=== PATIENT | male | born 1985 | race Two or more races ===

== ENCOUNTER 2025-05-04 14:50 | Emergency (ER) | payer MEDICAID, SELFPAY ==
[2025-05-04 14:52] VITALS: BMI 31.9
--- NOTE | 2025-05-04 14:55 | XR_ITS ---
Examination: Soft tissue extremity right thigh Technique: Grayscale sonographic images soft tissue right thigh Date and time: May 04, 2025, 1530 hrs. Indications: Patient states onset palpable lump in the anterior upper thigh beginning today. Findings: Soft tissue mass with heterogeneous echogenicity, no vascularity, 18 x 17 x 15 mm at the area of concern Impression: Findings most consistent with lymph node in the soft tissue right thigh at the area concern, recommend 3 month follow-up ultrasound soft tissue thigh
--- NOTE | 2025-05-04 14:55 | PD.EDEXREM ---
ED Extremity Problem RME/HPI General Chief complaint: Extremity Problem,Nontraumatic Stated complaint: KNOT TO RIGHT THIGH Time Seen by Provider: 05/04/25 14:52 Source: patient and family Arrival date/time: 05/04/25 14:50 Limitations: no limitations RME / HPI RME / HPI Narrative: Here with atraumatic pain/swelling at the right anterior mid thigh that started 1 hour prior to his arrival. No fevers, open wounds, or fevers. No redness or drainage. He has HTN and no other chronic disease. Patient states he does drink alcohol every day. He drinks 1 pint of whiskey daily. He denies any tremors in his history of seizure disorder. He is self ambulating without assistance. Related Data Home Medications ?Medication ?Instructions ?Recorded ?Confirmed lisinopril 10 mg tablet 10 mg PO QDAY 06/23/23 06/24/23 Previous Rx's ?Medication ?Instructions ?Recorded lisinopril 20 mg tablet 20 mg PO QDAY #30 tabs 05/04/25 Allergies Allergy/AdvReac Type Severity Reaction Status Date / Time cephalexin (From Keflex) Allergy Intermediate Swelling Verified 05/04/25 14:52 of Lip/Tongue/Throat Review of Systems Review of Systems Systems Reviewed: All systems reviewed, normal except as documented ED Exam General Limitations: Present no limitations General appearance: Present alert and in no apparent distress Head Head exam: Present atraumatic Eye Eye exam: Present normal appearance and PERRL ENT ENT exam: Present normal exam, normal oropharynx and mucous membranes moist Neck Neck exam: Present normal inspection, full ROM and trachea midline Chest Chest inspection: Present normal inspection and symmetric chest wall rise Respiratory Respiratory exam: Present normal lung sounds bilaterally Cardiovascular Cardiovascular exam: Present regular rate and normal rhythm Abdominal Exam Abdominal exam: Present soft Extremities Exam Extremities exam: Present full ROM and other (semi firm, tender 0.5 cm mass at the anterior right mid thigh. No induration, fluctuance, or discharge. Skin surface is intact. ) Back Exam Back exam: Present normal inspection and full ROM Neurological Exam Neurological exam: Present alert and oriented X3 Psychiatric Psychiatric exam: Present normal affect and normal mood Skin Skin exam: Present warm, dry, intact and normal color Course Quality Measures none Orders Category Date Time Status EKG (ED ONLY) *Do not use* NOW Care 05/04/25 16:01 Completed EKG (ED Only) Stat Exams 05/04/25 16:00 Draft US extremity nonvascular LMTD Stat Exams 05/04/25 14:55 Completed CBC Stat Lab 05/04/25 15:16 Completed CMP [Comprehensive Metabolic Panel] Stat Lab 05/04/25 15:16 Completed Ibuprofen Tab [Motrin Tab] Med 05/04/25 14:52 Discontinued 600 mg PO X1 ONE Lisinopril [Prinivil] Med 05/04/25 16:00 Discontinued 20 mg PO X1 ONE cloNIDine HCL [Catapres] Med 05/04/25 18:37 Discontinued 0.2 mg PO X1 ONE hydrALAZINE HCL [Apresoline] Med 05/04/25 17:35 Discontinued 10 mg PO X1 ONE hydrALAZINE HCL [Apresoline] Med 05/04/25 17:52 Discontinued 25 mg PO X1 ONE Vital Signs Vital signs: Vital Signs Temperature 99.0 F 05/04/25 15:00 Pulse Rate 82 05/04/25 15:00 Respiratory Rate 19 05/04/25 15:00 Blood Pressure 199/133 H 05/04/25 15:00 Pulse Oximetry (%) 96 05/04/25 15:00 Oxygen Delivery Method Room Air 05/04/25 15:00 Extremity Problem MDM Narrative MDM Narrative:: Here with atraumatic pain/swelling at the right anterior mid thigh that started 1 hour prior to his arrival. No fevers, open wounds, or fevers. No redness or drainage. He has HTN and no other chronic disease. Patient states he does drink alcohol every day. He drinks 1 pint of whiskey daily. He denies any tremors in his history of seizure disorder. He is self ambulating without assistance. On exam, patient is nontoxic-appearing in no visible signs stress. His blood pressures are elevated. He was initially 129/33. Workup here included CBC, CMP, and EKG. His CBC is unremarkable. His metabolic panel is remarkable for AST at 57, ALT at 101. Alk phos is unremarkable. Patient received doses of lisinopril and hydralazine here. We also refilled his prescription of lisinopril. We had a detailed conversation regarding alcohol abuse and his untreated hypertension. We discussed his liver function in detail. Patient was strongly encouraged to follow-up with his primary doctor and manage his blood pressure. We discussed medical management of him discontinuing alcohol abuse when he is ready. He is at risk for seizure disorder if he stops cold turkey . Patient was agreeable to this. He agrees to return anytime for any worsening or emergent changes. Patient data External records reviewed:: None Clinical information provided by:: patient Social determinants that could affect healthcare access:: none Patient has the following chronic illnesses:: Hypertension, alcohol abuse How is presenting disease/condition affected by chronic disease/condition?: exacerbated by Evaluation data The following diagnostics were reviewed and interpreted by me:: lab results Lab and/or radiology exams considered but not ordered:: n/a Interpretation Summary: Elevated liver enzymes Medications / Prescriptions Medications or Prescriptions considered but not ordered:: n/a Medication administrations:: Medication Administration History Discontinued Medications Clonidine (Clonidine Hcl 0.1 Mg Tablet) 0.2 mg PO X1 ONE Stop: 05/04/25 18:38 Last Admin: 05/04/25 19:03 Dose: 0.2 mg Documented By: Hydralazine HCl (Hydralazine Hcl 10 Mg Tablet) 10 mg PO X1 ONE Stop: 05/04/25 17:36 Last Admin: 05/04/25 17:55 Dose: Not Given Documented By: DANE Non-Admin Reason: Discontinued Hydralazine HCl (Hydralazine Hcl 25 Mg Tablet) 25 mg PO X1 ONE Stop: 05/04/25 17:53 Last Admin: 05/04/25 17:56 Dose: 25 mg Documented By: DANE Ibuprofen (Ibuprofen Tab 600 Mg Tablet) 600 mg PO X1 ONE Stop: 05/04/25 14:53 Last Admin: 05/04/25 15:16 Dose: 600 mg Documented By: Lisinopril (Lisinopril 20 Mg Tablet) 20 mg PO X1 ONE Stop: 05/04/25 16:01 Last Admin: 05/04/25 16:07 Dose: 20 mg Documented By: see above Consultations Consultation(s) initiated? (list below): Yes Diagnosis Extremity Problem Differential Diagnosis: other (Lipoma, dermatofibroma, abscess) Most likely diagnosis given after review of the tests above:: Lymphadenopathy, hypertension, alcohol abuse Admission Indicated Admission indicated?: not indicated Admission Request Was there a request for admission?: No Disposition Plan Disposition Plan: Discharge Discharge Attestation Discharge Attestation: The patient and all family members were given an opportunity to ask questions and understood the discharge instructions. Discharge instructions specifically effects, indications for sooner follow up or return to the emergency department, and the expected course of current diagnosis. Patient condition: Stable Discharge Plan Plan Patient Disposition: HOME (Self Care) Patient condition on transfer: Stable Prescriptions/Referrals Prescriptions/Med Rec: New lisinopril 20 mg tablet 20 mg PO QDAY Qty: 30 0RF No Action lisinopril 10 mg tablet 10 mg PO QDAY Referrals: No Primary/Family,Physician [Primary Care Provider] - In 1 week Problem List Clinical Impression: Lymphadenopathy, HTN (hypertension) Patient/Caregiver Discharge Instructions Education Materials: Controlling High Blood Pressure, Blood Pressure Check Steps Additional Instructions: -We are prescribing lisinopril for you. You will likely need further medication mgmt for appropriate blood pressure control. -Decrease your alcohol use but do not stop abruptly as this can induce withdrawals and seizures. -I strongly encourage you to follow up with your primary doctor as soon as possible to dicused blood pressure managment as assistance with your alcoholism. -Return to the ER at any time for any worsening changes. Print Language: [place] Stand Alone Forms: Laura Award Info., Patient Portal Info Letter
[2025-05-04 15:00] VITALS: BP 199/133; BP 203/139; PULSE 82; RESP 19; TEMP 37.2; O2SAT 96
[2025-05-04] MEDS: IBUPROFEN TAB 600 MG TABLET PO (15:16)
[2025-05-04 15:38] LABS: Basophils # (Auto) 0.1 Thou/mm3 (0.0-0.2); Basophils % (Auto) 1 % (0-2.5); Eosinophils # (Auto) 0.2 Thou/mm3 (0.0-0.5); Eosinophils % (Auto) 3 % (0-10); Hematocrit 46.9 % (41.0-53.0); Hemoglobin 16.5 g/dL (13.5-16.0); Immature Granulocytes Auto 0.01 Thou/mm3 (0.00-0.00); Lymphocytes # (Auto) 2.3 Thou/mm3 (1.0-4.8); Lymphocytes % (Auto) 31 % (10-50); Mean Corpuscular HGB Conc 35.2 g/dl (31.0-37.0); Mean Corpuscular Hemoglobin 31.5 pg (25.0-35.0); Mean Corpuscular Volume 90 fL (80-100); Monocytes # (Auto) 0.6 Thou/mm3 (0.0-0.8); Monocytes % (Auto) 8 % (0-12); Neutrophils # (Auto) 4.3 Thou/mm3 (1.8-7.7); Neutrophils % (Auto) 57 % (37-80); Nucleated Red Blood Cell # 0.00 Thou/mm3 (0.00-0.00); Nucleated Red Blood Cell % 0 /100 WBC (0); Platelet Count 223 Thou/mm3 (140-440); RDW Standard Deviation 38.4 fL (35.1-43.9); Red Blood Count 5.24 Miln/mm3 (4.50-5.90); White Blood Count 7.5 Thou/mm3 (3.8-10.6)
--- NOTE | 2025-05-04 16:00 | EKG_ITS ---
[facility] Test Date: 2025-05-04 Pat Name: MICHAEL GARG Department: Room: - Gender: Male [employer]ist: : 1985 Requested By: Edel Tyson Order Number: [id number] Reading MD: Edel Tyson Measurements Intervals [place] Rate: 84 P: 25 DE: 149 QRS: 17 QRSD: 97 T: 18 QT: 345 QTc: 408 Interpretive Statements SINUS RHYTHM No previous ECG available for comparison /store/[email or web address]/[id number]
[2025-05-04 16:07] VITALS: BP 199/133; PULSE 82
[2025-05-04 16:24] LABS: Alanine Aminotransferase 101 U/L (10-49); Albumin, Serum 4.9 gm/dL (3.5-5.0); Albumin/Globulin Ratio 1.5 (1.2-2.2); Alkaline Phosphatase 84 U/L (46-116); Anion Gap 13 (7-16); Aspartate Amino Transferase 57 U/L (0-34); BUN/Creatinine Ratio 10 Ratio (12-20); Bilirubin,Total 0.4 mg/dL (0.3-1.2); Blood Urea Nitrogen 12 mg/dL (9-23); Calcium 10.4 mg/dL (8.3-10.6); Calcium (Corrected) 10.4 mg/dL (8.5-10.1); Carbon Dioxide 24.2 mMol/L (20.0-31.0); Chloride 104 mMol/L (98-107); Creatinine (Component) 1.2 mg/dL (0.6-1.3); Estimated Creatinine Clearance 92.5 mL/min (>60); Globulin 3.2 gm/dL (2.3-3.5); Glucose 92 mg/dL (74-106); Osmolality,Calculated 280 (275-295); Potassium 4.1 mMol/L (3.4-5.1); Sodium 141 mMol/L (136-145); Total Protein 8.1 gm/dL (5.7-8.2); eGFR > 60 See Note
[2025-05-04 17:45] VITALS: BP 199/123; BP 212/134; PULSE 85; RESP 20; TEMP 36.9; O2SAT 99
[2025-05-04 17:56] VITALS: BP 199/123; PULSE 85
[2025-05-04 19:03] VITALS: BP 199/123; PULSE 85
[2025-05-04 20:07] VITALS: BP 173/118; PULSE 91; RESP 17; TEMP 37; O2SAT 98
== END 2025-05-04 20:30 | disposition home or self-care (01) ==
PROVIDERS: Physician Assistant Medical; Emergency Provider Emergency Medicine
DX: R59.1 Generalized enlarged lymph nodes (principal); I10 Essential (primary) hypertension
CPT/HCPCS: 36415; 76882; 80053; 85025; 93005; 99282; A9270